=== PATIENT | male | born 1935 | race Caucasian/White ===

== ENCOUNTER 2017-08-22 16:38 | Inpatient (IN) | payer OTHER, MEDICARE ==
[~2017-08-22] VITALS: Ht 177.8 cm; Wt 100.0 kg
[~2017-08-22 16:38] MED LIST: ACET-2319 PO; ASPI-1140 PO; CLOP75TA35 PO; DIPH25CA83 PO; LISI-644 PO; OMEP20CA10 PO; SIMV40TA4 PO
[2017-08-22] MEDS ORDERED: aspirin 81mg tab.chew PO ONE (16:55)
[2017-08-22 17:21] LABS: BASOPHILS % (AUTO) 0.4 % (0-1); EOSINOPHILS # (AUTO) 0.2 X10'3 (0-0.9); HEMATOCRIT 44.3 % (42.0-52.0); HEMOGLOBIN 14.8 g/dl (14.0-17.9); LYMPHOCYTES # (AUTO) 1.3 X10'3 (1.1-4.8); LYMPHOCYTES % (AUTO) 12.6 % (21-51); MEAN CORPUSCULAR HGB CONC 33.3 % (33.0-36.5); MEAN CORPUSCULAR VOLUME 96.1 FL (78-98); MEAN PLATELET VOLUME 8.7 FL (7.4-10.4); MONOCYTES # (AUTO) 0.6 X10'3 (0-0.9); MONOCYTES % (AUTO) 6.3 % (2-12); NEUTROPHILS # (AUTO) 7.9 X10'3 (1.8-7.7); NEUTROPHILS % (AUTO) 78.7 % (42-75); PLATELET COUNT 143 X10'3 (140-440); RED BLOOD COUNT 4.61 X10'6 (4.70-6.10); RED CELL DISTRIBUTION WIDTH 13.8 % (11.5-14.5)
[2017-08-22 17:35] LABS: ALANINE AMINOTRANSFERASE 37 U/L (12-78); ALBUMIN/GLOBULIN RATIO 1.1 (1.1-1.5); ALKALINE PHOSPHATASE 90 IU/L (46-116); ANION GAP 9 (8-16); ASPARTATE AMINO TRANSFERASE 29 U/L (10-37); BILIRUBIN,TOTAL 0.4 MG/DL (0.1-1.0); BLOOD UREA NITROGEN 20 MG/DL (7-18); BUN/CREATININE RATIO 17.2 (5.4-32.0); CALCIUM 9.3 MG/DL (8.5-10.1); CHLORIDE 105 MMOL/L (99-107); CREATININE 1.16 MG/DL (0.60-1.10); GLUCOSE 144 MG/DL (70-104); POTASSIUM 4.5 MMOL/L (3.5-5.1); SODIUM 144 MMOL/L (135-145); TOTAL CARBON DIOXIDE 29.9 MMOL/L (24-32); TOTAL PROTEIN 7.6 G/DL (6.4-8.2); eGFR 60 ML/MIN
[2017-08-22 17:38] LABS: PARTIAL THROMBOPLASTIN TIME 21 SECONDS (22-32)
[2017-08-22] MEDS ORDERED: LIDOcaine Viscous 15ml cup PO ONE (18:05)
[2017-08-22] MEDS ORDERED: mag hydrox/Alum hydrox/simeth 30ml oral suspension PO ONE (18:05)
[2017-08-22] MEDS ORDERED: ondansetron/PF 4mg/2ml inj IV ONE (18:05)
[2017-08-22] MEDS ORDERED: morphine 5 MG/ML injection IV ONE (18:40)
[2017-08-22] MEDS ORDERED: morphine sulfate 8 MG/ML SYRINGE IV ONE (18:45)
[2017-08-22] MEDS ORDERED: iohexol 350MG/ML 100ml bottle IV ONE (18:46)
[2017-08-22] MEDS ORDERED: normal saline 1000ml 1,000 ML IV ONE (19:20)
[2017-08-22 20:27] LABS: LIPASE 103 U/L (73-393)
[2017-08-22] MEDS ORDERED: piperacillin/tazo 3.375gm/50ml 50 ML IV ONE (20:35)
[2017-08-22] MEDS ORDERED: LORazepam 2 mg/ml vial IV ONE (20:55)
[2017-08-22] MEDS ORDERED: temazepam 15mg capsule PO PRN (21:00)
[2017-08-22] MEDS ORDERED: pantoprazole 40 MG vial IV ONE (21:10)
[2017-08-22] MEDS ORDERED: morphine sulfate 8 MG/ML SYRINGE IV PRN ×2 (22:15)
[2017-08-22] MEDS ORDERED: acetaminophen 325mg tablet PO PRN (22:15)
[2017-08-22] MEDS ORDERED: lisinopril 20mg tablet PO SCH (22:15)
[2017-08-22] MEDS ORDERED: HYDROcodone/acetaminophen 5mg/325mg tablet PO PRN (22:15)
[2017-08-22] MEDS ORDERED: magnesium hydroxide 30ml (MOM) UD suspension PO PRN (22:15)
[2017-08-22] MEDS ORDERED: mag hydrox/Alum hydrox/simeth 30ml oral suspension PO PRN (22:15)
[2017-08-22] MEDS ORDERED: HYDROcodone/acetaminophen 10/325mg tab PO PRN (22:15)
[2017-08-22] MEDS ORDERED: bisacodyl 10mg suppository rectal RC PRN (22:15)
[2017-08-22] MEDS ORDERED: HYDROmorphone 1 mg/ml syringe IV PRN ×2 (22:15)
[2017-08-22] MEDS ORDERED: diphenhydrAMINE 25mg capsule PO PRN (22:15)
[2017-08-22] MEDS ORDERED: diphenhydrAMINE 50 mg/ml inj IV PRN (22:15)
[2017-08-22] MEDS ORDERED: acetaminophen 650mg rectal suppository RC PRN (22:15)
[2017-08-22] MEDS ORDERED: metoclopramide 5 mg/ml inj IV PRN (22:15)
[2017-08-22] MEDS ORDERED: lisinopril 10 MG tablet PO SCH (22:27)
[2017-08-22] MEDS: normal saline 1000ml 1,000 ML IV SCH (23:15)
[2017-08-22 23:25] LABS: HEMOGLOBIN A1C 5.3 % (4.5-6.2)
[2017-08-22 23:37] LABS: MAGNESIUM 1.9 MG/DL (1.5-2.4)
[2017-08-23] VITALS: BP 129/85
[2017-08-23] MEDS: normal saline 1000ml 1,000 ML IV SCH ×3 (00:48→18:54)
[2017-08-23 05:11] LABS: CLARITY,URINE CLEAR (Clear); COLOR,URINE YELLOW (Yellow); GLUCOSE, URINE NEGATIVE (Neg); KETONES,URINE 15 mg/dl (Neg); LEUKOCYTE ESTERASE ,URINE NEGATIVE (Neg); NITRITES, URINE NEGATIVE (Neg); OCCULT BLOOD,URINE NEGATIVE (Neg); PH,URINE 7.5 (4.8-8.0); PROTEIN,URINE TRACE mg/dl (Neg)
[2017-08-23 05:16] LABS: UA COLLECTION TYPE CLN CATCH MIDSTREAM
[2017-08-23 05:17] LABS: BASOPHILS % (AUTO) 0.1 % (0-1); EOSINOPHILS % (AUTO) 0 % (0-6); HEMATOCRIT 43.9 % (42.0-52.0); HEMOGLOBIN 14.6 g/dl (14.0-17.9); LYMPHOCYTES # (AUTO) 0.5 X10'3 (1.1-4.8); LYMPHOCYTES % (AUTO) 3.5 % (21-51); MEAN CORPUSCULAR HEMOGLOBIN 31.9 PG (27.0-31.0); MEAN CORPUSCULAR HGB CONC 33.3 % (33.0-36.5); MEAN CORPUSCULAR VOLUME 95.9 FL (78-98); MONOCYTES # (AUTO) 1.2 X10'3 (0-0.9); MONOCYTES % (AUTO) 8.7 % (2-12); NEUTROPHILS # (AUTO) 11.6 X10'3 (1.8-7.7); NEUTROPHILS % (AUTO) 87.7 % (42-75); PLATELET COUNT 130 X10'3 (140-440); RED BLOOD COUNT 4.57 X10'6 (4.70-6.10); WHITE BLOOD COUNT 13.3 X10'3 (4.5-11.0)
[2017-08-23 05:17] LABS: BACTERIA,URINE FEW /HPF (Neg); RBC,URINE 0-2 /HPF (0-2); SQUAMOUS EPITHELIAL CELL,UR FEW /LPF (FEW); WBC,URINE 0-4 /HPF (0-4)
[2017-08-23 05:54] LABS: ALANINE AMINOTRANSFERASE 34 U/L (12-78); ALBUMIN 3.6 G/DL (3.4-5.0); ALKALINE PHOSPHATASE 79 IU/L (46-116); ANION GAP 11 (8-16); ASPARTATE AMINO TRANSFERASE 24 U/L (10-37); BILIRUBIN,TOTAL 1.1 MG/DL (0.1-1.0); BLOOD UREA NITROGEN 17 MG/DL (7-18); BUN/CREATININE RATIO 14.8 (5.4-32.0); CALCIUM 8.7 MG/DL (8.5-10.1); CHLORIDE 105 MMOL/L (99-107); CREATININE 1.15 MG/DL (0.60-1.10); GLUCOSE 144 MG/DL (70-104); POTASSIUM 4.6 MMOL/L (3.5-5.1); SODIUM 142 MMOL/L (135-145); TOTAL CARBON DIOXIDE 26.4 MMOL/L (24-32); TOTAL PROTEIN 7.2 G/DL (6.4-8.2); eGFR 61 ML/MIN
[2017-08-23 07:00] VITALS: BP 123/71
[2017-08-23] MEDS ORDERED: docusate sod 100mg capsule PO ONE (07:26)
[2017-08-23] MEDS ORDERED: lisinopril 10 MG tablet ONE (07:27)
[2017-08-23] MEDS ORDERED: pantoprazole 40 MG vial IV ONE (07:27)
[2017-08-23] MEDS ORDERED: acetaminophen 325mg tablet ONE (07:28)
[2017-08-23] MEDS ORDERED: vancomycin/NS 1 GM ADD-VANTAGE 250 ML IV ONE (07:30)
[2017-08-23] MEDS: pantoprazole 40 MG vial IV SCH (07:40)
[2017-08-23] MEDS: acetaminophen 325mg tablet PO PRN (07:41)
[2017-08-23] MEDS ORDERED: vancomycin/NS 1 GM ADD-VANTAGE 250 ML IV SCH (08:00)
[2017-08-23] MEDS ORDERED: docusate sod 100mg capsule PO SCH (08:00)
[2017-08-23] MEDS: piperacillin/tazo 4.5gm/100ml 100 ML IV SCH ×2 (10:24→20:53)
[2017-08-23 11:41] VITALS: BP 132/80
[2017-08-23] MEDS ORDERED: morphine 5 MG/ML injection IV ONE (12:10)
[2017-08-23] MEDS ORDERED: morphine 5 MG/ML injection IV PRN (12:10)
[2017-08-23] MEDS ORDERED: insulin Lispro (HumaLOG) vial - multi-dose SQ SCH (13:00)
[2017-08-23] MEDS ORDERED: dextrose 50%-water 50ml dispensing syringe IV PRN ×2 (13:00)
[2017-08-23] MEDS ORDERED: MESSAGE TO PHARMACY PO ONE (13:00)
[2017-08-23] MEDS ORDERED: glucagon, human recombinant 1mg kit SUBCUT PRN (13:00)
[2017-08-23] MEDS ORDERED: dextrose ORAL solution 15 GM/59 ML bottle PO PRN ×2 (13:00)
[2017-08-23] MEDS ORDERED: hydrALAZINE 20mg/ml inj. IV ONE (13:43)
[2017-08-23 13:45] VITALS: BP 135/74
[2017-08-23] MEDS: hydrALAZINE 20mg/ml inj. IV SCH ×2 (13:49→20:52)
[2017-08-23] MEDS ORDERED: BARIUM SULFATE 340 ML SUSP.RECON***PROCEDURE AREA ONLY**DONT ENTER PO ONE (14:44)
[2017-08-23 20:00] VITALS: BP 148/87
[2017-08-23] MEDS: morphine sulfate 8 MG/ML SYRINGE IV PRN (21:25)
[2017-08-24] VITALS (10 sets, daily range): BP systolic 137–188; BP diastolic 75–95
[2017-08-24] MEDS: hydrALAZINE 20mg/ml inj. IV SCH ×4 (02:29→21:20)
[2017-08-24] MEDS: acetaminophen 325mg tablet PO PRN (02:43)
[2017-08-24 05:04] LABS: BASOPHILS % (AUTO) 0.1 % (0-1); EOSINOPHILS % (AUTO) 0 % (0-6); HEMATOCRIT 39.7 % (42.0-52.0); HEMOGLOBIN 13.5 g/dl (14.0-17.9); LYMPHOCYTES # (AUTO) 0.8 X10'3 (1.1-4.8); LYMPHOCYTES % (AUTO) 5.8 % (21-51); MEAN CORPUSCULAR HEMOGLOBIN 32.5 PG (27.0-31.0); MEAN CORPUSCULAR VOLUME 95.6 FL (78-98); MEAN PLATELET VOLUME 8.6 FL (7.4-10.4); MONOCYTES # (AUTO) 1.4 X10'3 (0-0.9); MONOCYTES % (AUTO) 10.2 % (2-12); NEUTROPHILS # (AUTO) 11.6 X10'3 (1.8-7.7); NEUTROPHILS % (AUTO) 83.9 % (42-75); PLATELET COUNT 124 X10'3 (140-440); RED BLOOD COUNT 4.15 X10'6 (4.70-6.10); RED CELL DISTRIBUTION WIDTH 13.8 % (11.5-14.5); WHITE BLOOD COUNT 13.8 X10'3 (4.5-11.0)
[2017-08-24 05:31] LABS: ALANINE AMINOTRANSFERASE 32 U/L (12-78); ALBUMIN 3.3 G/DL (3.4-5.0); ALBUMIN/GLOBULIN RATIO 0.9 (1.1-1.5); ALKALINE PHOSPHATASE 64 IU/L (46-116); ANION GAP 9 (8-16); ASPARTATE AMINO TRANSFERASE 25 U/L (10-37); BILIRUBIN,TOTAL 1.8 MG/DL (0.1-1.0); BLOOD UREA NITROGEN 12 MG/DL (7-18); BUN/CREATININE RATIO 12.6 (5.4-32.0); CALCIUM 8.6 MG/DL (8.5-10.1); CHLORIDE 103 MMOL/L (99-107); CREATININE 0.95 MG/DL (0.60-1.10); GLUCOSE 112 MG/DL (70-104); SODIUM 138 MMOL/L (135-145); TOTAL CARBON DIOXIDE 25.8 MMOL/L (24-32); TOTAL PROTEIN 6.8 G/DL (6.4-8.2); eGFR 76 ML/MIN
[2017-08-24] MEDS: pantoprazole 40 MG vial IV SCH (06:57)
[2017-08-24] MEDS: normal saline 1000ml 1,000 ML IV SCH ×2 (06:58→18:15)
[2017-08-24] MEDS: morphine sulfate 8 MG/ML SYRINGE IV PRN ×2 (07:07→14:36)
[2017-08-24] MEDS: piperacillin/tazo 4.5gm/100ml 100 ML IV SCH ×2 (07:15→21:20)
[2017-08-24] MEDS ORDERED: pantoprazole 40 MG vial IV SCH (08:00)
[2017-08-24] MEDS ORDERED: MIDAZolam 5mg/5ml vial ONE (08:50)
[2017-08-24] MEDS ORDERED: LIDOcaine Viscous 15ml cup ONE (08:50)
[2017-08-24] MEDS ORDERED: fentaNYL/PF 50MCG/1 ML 2ML syringe ONE (08:50)
[2017-08-24 10:33] LABS: BILIRUBIN,DIRECT 0.4 MG/DL (0-0.3)
[2017-08-24] MEDS ORDERED: normal saline 1000ml 1,000 ML IV SCH (11:17)
[2017-08-24] MEDS ORDERED: simethicone 40mg/0.6ml oral drops 30ml MC ONE (11:20)
[2017-08-24] MEDS ORDERED: MIDAZolam 5mg/5ml vial IV PRN (11:20)
[2017-08-24] MEDS ORDERED: LIDOcaine Viscous 15ml cup PO ONE (11:20)
[2017-08-24] MEDS ORDERED: fentaNYL/PF 50MCG/1 ML 2ML syringe IV PRN (11:20)
[2017-08-24 11:41] LABS: ABG BASE EXCESS -1.4 mmol/L (-2.0-3.0); ABG HCO3 22.4 mmol/L (22.0-26.0); ABG OXYGEN SATURATION 95.3 % (95-98); ABG PCO2 (T) 36.2 mmHg (35.0-48.0); ABG PH (T) 7.412 (7.350-7.450); ABG PO2 (T) 73.6 mmHg (83-108); ALLEN'S TEST Positive; FCOHb 0.8 % (0.5-1.5); FLOW 2 L/min; FMetHb 0.2 % (0.3-1.12); FO2Hb 94.3 % (94-100); PATIENT TEMPERATURE 37.6; TOTAL HEMOGLOBIN 14.3 G/dl (14.0-18.0)
[2017-08-24] MEDS: ondansetron/PF 4mg/2ml inj IV PRN (13:59)
[2017-08-24] MEDS ORDERED: nicotine 21mg patch - 24 hr TD SCH (16:40)
[2017-08-24] MEDS ORDERED: thiamine inj. 100 MG in normal saline 100ml IV soln 100 ML IV ONE (16:40)
[2017-08-24] MEDS ORDERED: LORazepam 2 mg/ml vial IV PRN ×4 (16:40)
[2017-08-24] MEDS ORDERED: haloperidol lactate 5mg/ml inj IM PRN ×3 (16:40)
[2017-08-24] MEDS ORDERED: haloperidol 5mg tablet PO PRN ×2 (16:40)
[2017-08-24] MEDS ORDERED: cloNIDine 0.1 mg tablet PO PRN ×2 (16:40→18:05)
[2017-08-24] MEDS ORDERED: LORazepam 1 MG tablet PO PRN (16:40)
[2017-08-24] MEDS ORDERED: loperamide 2mg capsule PO ONE (16:40)
[2017-08-24] MEDS ORDERED: cloNIDine 0.1 MG/24 HOUR patch (7 day patch) TD SCH (16:40)
[2017-08-24] MEDS ORDERED: dicyclomine 10 MG capsule PO PRN (16:40)
[2017-08-24] MEDS ORDERED: loperamide 2mg capsule PO PRN (16:40)
[2017-08-24] MEDS ORDERED: dextrose 50%-water 50ml dispensing syringe IV PRN (16:40)
[2017-08-24] MEDS ORDERED: mag hydrox/Alum hydrox/simeth 30ml oral suspension PO PRN (16:40)
[2017-08-24] MEDS: LORazepam 2 mg/ml vial IV PRN (22:57)
[2017-08-25] VITALS (21 sets, daily range): BP systolic 108–153; BP diastolic 54–92
[2017-08-25] MEDS: morphine sulfate 8 MG/ML SYRINGE IV PRN ×2 (00:08→15:59)
[2017-08-25] MEDS: LORazepam 2 mg/ml vial IV PRN (01:37)
[2017-08-25] MEDS: normal saline 1000ml 1,000 ML IV SCH ×3 (01:59→23:44)
[2017-08-25] MEDS: hydrALAZINE 20mg/ml inj. IV SCH ×4 (02:10→20:09)
[2017-08-25] MEDS ORDERED: heparin 10,000 units/1 ML INJ IV ONE (02:15)
[2017-08-25] MEDS ORDERED: heparin 10,000 units/1 ML INJ IV PRN (02:15)
[2017-08-25] MEDS ORDERED: diltiazem 5mg/ml 5ml inj. IV ONE ×2 (02:25→02:30)
[2017-08-25 02:38] LABS: BASOPHILS % (AUTO) 0.1 % (0-1); EOSINOPHILS % (AUTO) 0 % (0-6); HEMATOCRIT 39.3 % (42.0-52.0); HEMOGLOBIN 13.3 g/dl (14.0-17.9); LYMPHOCYTES # (AUTO) 0.7 X10'3 (1.1-4.8); LYMPHOCYTES % (AUTO) 4.9 % (21-51); MEAN CORPUSCULAR HEMOGLOBIN 32.5 PG (27.0-31.0); MEAN CORPUSCULAR HGB CONC 33.8 % (33.0-36.5); MEAN CORPUSCULAR VOLUME 96.3 FL (78-98); MEAN PLATELET VOLUME 8.7 FL (7.4-10.4); MONOCYTES # (AUTO) 1.5 X10'3 (0-0.9); MONOCYTES % (AUTO) 9.8 % (2-12); NEUTROPHILS # (AUTO) 12.7 X10'3 (1.8-7.7); NEUTROPHILS % (AUTO) 85.2 % (42-75); PLATELET COUNT 119 X10'3 (140-440); RED BLOOD COUNT 4.08 X10'6 (4.70-6.10); RED CELL DISTRIBUTION WIDTH 14.1 % (11.5-14.5); WHITE BLOOD COUNT 14.9 X10'3 (4.5-11.0)
[2017-08-25 02:47] LABS: PROTHROMBIN TIME 10.7 SECONDS (9.0-12.0)
[2017-08-25 02:57] LABS: ALANINE AMINOTRANSFERASE 25 U/L (12-78); ALBUMIN 2.9 G/DL (3.4-5.0); ALBUMIN/GLOBULIN RATIO 0.8 (1.1-1.5); ALKALINE PHOSPHATASE 69 IU/L (46-116); AMYLASE 20 U/L (25-115); ANION GAP 10 (8-16); ASPARTATE AMINO TRANSFERASE 25 U/L (10-37); BILIRUBIN,DIRECT 0.4 MG/DL (0-0.3); BILIRUBIN,TOTAL 1.9 MG/DL (0.1-1.0); BLOOD UREA NITROGEN 12 MG/DL (7-18); CALCIUM 8.2 MG/DL (8.5-10.1); CHLORIDE 103 MMOL/L (99-107); GLUCOSE 97 MG/DL (70-104); LIPASE 52 U/L (73-393); MAGNESIUM 1.6 MG/DL (1.5-2.4); PHOSPHORUS 1.9 MG/DL (2.3-4.5); POTASSIUM 3.6 MMOL/L (3.5-5.1); SODIUM 137 MMOL/L (135-145); TOTAL CARBON DIOXIDE 23.8 MMOL/L (24-32); TOTAL PROTEIN 6.7 G/DL (6.4-8.2); eGFR 72 ML/MIN
[2017-08-25 03:26] LABS: PARTIAL THROMBOPLASTIN TIME 34 SECONDS (22-32)
[2017-08-25] MEDS ORDERED: diltiazem-D5W 125mg/125ml 125 ML IV SCH (04:20)
[2017-08-25] MEDS ORDERED: metoprolol tartrate 1mg/ml inj IV ONE (07:35)
[2017-08-25] MEDS ORDERED: methylPREDNISolone sod succ 125mg/2ml vial IV ONE (07:35)
[2017-08-25] MEDS ORDERED: digoxin 250mcg/ml 2ml ampule IV ONE (07:35)
[2017-08-25] MEDS ORDERED: folic acid 1mg tablet PO SCH (08:00)
[2017-08-25] MEDS ORDERED: folic acid inj. 2 MG, thiamine inj. 100 MG, MVI, adult No.4 with vit. K 10 ML in dextro... IV SCH ×4 (08:00)
[2017-08-25] MEDS ORDERED: atenolol 50mg tablet PO SCH (08:00)
[2017-08-25] MEDS ORDERED: multivitamins, therapeutics tablet PO SCH (08:00)
[2017-08-25] MEDS ORDERED: enoxaparin 40mg/0.4ml syringe SQ SCH (08:00)
[2017-08-25] MEDS ORDERED: thiamine 100mg tablet PO SCH (08:00)
[2017-08-25] MEDS ORDERED: nicotine 14mg patch - 24hr TD SCH (08:00)
[2017-08-25] MEDS ORDERED: amiodarone 150mg/dext, iso-os 100 ML IV ONE (08:05)
[2017-08-25] MEDS: pantoprazole 40 MG vial IV SCH (08:17)
[2017-08-25] MEDS: amiodarone/D5 360MG/200ML BAG 200 ML IV SCH ×4 (08:40→23:35)
[2017-08-25] MEDS ORDERED: magnesium 2GM in 50ml NS 50 ML IV ONE (09:10)
[2017-08-25] MEDS: piperacillin/tazo 4.5gm/100ml 100 ML IV SCH ×2 (13:00→20:09)
[2017-08-25] MEDS: ondansetron/PF 4mg/2ml inj IV PRN (16:15)
[2017-08-25] MEDS ORDERED: albuterol 2.5 MG/3 ML nebule NEB PRN (20:45)
[2017-08-26] VITALS (8 sets, daily range): BP systolic 119–142; BP diastolic 53–75
[2017-08-26] MEDS: hydrALAZINE 20mg/ml inj. IV SCH ×4 (01:39→20:01)
[2017-08-26 05:38] LABS: BASOPHILS % (AUTO) 0 % (0-1); EOSINOPHILS % (AUTO) 0 % (0-6); HEMATOCRIT 38.7 % (42.0-52.0); HEMOGLOBIN 12.8 g/dl (14.0-17.9); LYMPHOCYTES # (AUTO) 0.5 X10'3 (1.1-4.8); MEAN CORPUSCULAR HEMOGLOBIN 32.1 PG (27.0-31.0); MEAN CORPUSCULAR HGB CONC 33.2 % (33.0-36.5); MEAN CORPUSCULAR VOLUME 96.9 FL (78-98); MEAN PLATELET VOLUME 8.9 FL (7.4-10.4); MONOCYTES # (AUTO) 1.1 X10'3 (0-0.9); MONOCYTES % (AUTO) 9.2 % (2-12); NEUTROPHILS # (AUTO) 10.9 X10'3 (1.8-7.7); NEUTROPHILS % (AUTO) 86.8 % (42-75); PLATELET COUNT 142 X10'3 (140-440); RED BLOOD COUNT 3.99 X10'6 (4.70-6.10); RED CELL DISTRIBUTION WIDTH 13.9 % (11.5-14.5); WHITE BLOOD COUNT 12.5 X10'3 (4.5-11.0)
[2017-08-26 06:03] LABS: ALANINE AMINOTRANSFERASE 48 U/L (12-78); ALBUMIN 2.6 G/DL (3.4-5.0); ALBUMIN/GLOBULIN RATIO 0.6 (1.1-1.5); ALKALINE PHOSPHATASE 71 IU/L (46-116); AMYLASE 24 U/L (25-115); ANION GAP 8 (8-16); ASPARTATE AMINO TRANSFERASE 45 U/L (10-37); BILIRUBIN,TOTAL 0.7 MG/DL (0.1-1.0); BLOOD UREA NITROGEN 17 MG/DL (7-18); BUN/CREATININE RATIO 15.9 (5.4-32.0); CALCIUM 8.5 MG/DL (8.5-10.1); CHLORIDE 103 MMOL/L (99-107); CREATININE 1.07 MG/DL (0.60-1.10); GLUCOSE 124 MG/DL (70-104); LIPASE 72 U/L (73-393); MAGNESIUM 2.3 MG/DL (1.5-2.4); PHOSPHORUS 2.2 MG/DL (2.3-4.5); POTASSIUM 3.8 MMOL/L (3.5-5.1); SODIUM 136 MMOL/L (135-145); TOTAL CARBON DIOXIDE 25.5 MMOL/L (24-32); TOTAL PROTEIN 6.8 G/DL (6.4-8.2); eGFR 66 ML/MIN
[2017-08-26] MEDS ORDERED: ipratropium 0.5 MG/2.5ML nebule IH PRN (07:25)
[2017-08-26 07:43] LABS: BILIRUBIN,DIRECT 0.2 MG/DL (0-0.3)
[2017-08-26] MEDS: pantoprazole 40 MG vial IV SCH (08:06)
[2017-08-26] MEDS: furosemide 20 MG/2 ML vial IV SCH ×2 (08:06→20:01)
[2017-08-26] MEDS: enoxaparin 100mg/ml syringe SUBCUT SCH ×2 (08:07→20:02)
[2017-08-26] MEDS: amiodarone 200mg tablet PO SCH ×2 (08:07→20:01)
[2017-08-26] MEDS: piperacillin/tazo 4.5gm/100ml 100 ML IV SCH ×2 (08:46→20:02)
[2017-08-26] MEDS ORDERED: LORazepam 2 mg/ml vial IV PRN (16:40)
[2017-08-26] MEDS ORDERED: LORazepam 1 MG tablet PO PRN (16:40)
[2017-08-26] MEDS: lactobacillus rhamnosus 10,000 MMU CELLS/CAPSULE PO SCH (16:53)
[2017-08-26] MEDS: cyclobenzaprine 10mg tablet PO PRN (20:13)
[2017-08-27] MEDS: hydrALAZINE 20mg/ml inj. IV SCH ×4 (01:33→20:59)
[2017-08-27 03:00] VITALS: BP 125/66
[2017-08-27 05:05] LABS: BASOPHILS % (AUTO) 0.1 % (0-1); EOSINOPHILS # (AUTO) 0.1 X10'3 (0-0.9); EOSINOPHILS % (AUTO) 0.9 % (0-6); HEMATOCRIT 39.4 % (42.0-52.0); HEMOGLOBIN 13.1 g/dl (14.0-17.9); LYMPHOCYTES # (AUTO) 1.1 X10'3 (1.1-4.8); LYMPHOCYTES % (AUTO) 14.3 % (21-51); MEAN CORPUSCULAR HEMOGLOBIN 31.8 PG (27.0-31.0); MEAN CORPUSCULAR HGB CONC 33.1 % (33.0-36.5); MEAN CORPUSCULAR VOLUME 95.9 FL (78-98); MEAN PLATELET VOLUME 8.5 FL (7.4-10.4); MONOCYTES % (AUTO) 14.1 % (2-12); NEUTROPHILS # (AUTO) 5.2 X10'3 (1.8-7.7); NEUTROPHILS % (AUTO) 70.6 % (42-75); PLATELET COUNT 174 X10'3 (140-440); RED BLOOD COUNT 4.11 X10'6 (4.70-6.10); RED CELL DISTRIBUTION WIDTH 14.4 % (11.5-14.5); WHITE BLOOD COUNT 7.4 X10'3 (4.5-11.0)
[2017-08-27 05:36] LABS: ALANINE AMINOTRANSFERASE 56 U/L (12-78); ALBUMIN 2.5 G/DL (3.4-5.0); ALBUMIN/GLOBULIN RATIO 0.6 (1.1-1.5); ALKALINE PHOSPHATASE 76 IU/L (46-116); AMYLASE 65 U/L (25-115); ANION GAP 6 (8-16); ASPARTATE AMINO TRANSFERASE 41 U/L (10-37); BILIRUBIN,TOTAL 0.9 MG/DL (0.1-1.0); BLOOD UREA NITROGEN 20 MG/DL (7-18); BUN/CREATININE RATIO 17.9 (5.4-32.0); CALCIUM 8.6 MG/DL (8.5-10.1); CHLORIDE 105 MMOL/L (99-107); CREATININE 1.12 MG/DL (0.60-1.10); GLUCOSE 87 MG/DL (70-104); LIPASE 357 U/L (73-393); MAGNESIUM 2.1 MG/DL (1.5-2.4); POTASSIUM 3.1 MMOL/L (3.5-5.1); SODIUM 140 MMOL/L (135-145); TOTAL CARBON DIOXIDE 29.3 MMOL/L (24-32); TOTAL PROTEIN 6.4 G/DL (6.4-8.2); eGFR 63 ML/MIN
[2017-08-27 06:00] VITALS: BP 140/79
[2017-08-27] MEDS: piperacillin/tazo 4.5gm/100ml 100 ML IV SCH ×2 (08:45→20:59)
[2017-08-27] MEDS: pantoprazole 40mg Tablet.DR PO SCH (08:47)
[2017-08-27] MEDS: lactobacillus rhamnosus 10,000 MMU CELLS/CAPSULE PO SCH ×2 (08:47→17:31)
[2017-08-27] MEDS: amiodarone 200mg tablet PO SCH ×2 (08:47→21:00)
[2017-08-27] MEDS: furosemide 20 MG/2 ML vial IV SCH ×2 (08:47→20:59)
[2017-08-27] MEDS: enoxaparin 100mg/ml syringe SUBCUT SCH ×2 (08:48→20:59)
[2017-08-27 11:00] VITALS: BP 110/58
[2017-08-27] MEDS ORDERED: potassium Cl 20 mEq SR tablet PO PRN (11:30)
[2017-08-27] MEDS ORDERED: potassium Cl 40MEQ/NS 500ml 500 ML IV PRN ×2 (11:30)
[2017-08-27] MEDS: potassium Cl 20 mEq SR tablet PO PRN ×2 (12:15→21:00)
[2017-08-27] MEDS: benzonatate 100mg capsule PO PRN ×2 (12:15→21:00)
[2017-08-27 15:00] VITALS: BP 140/71
[2017-08-27 19:00] VITALS: BP 131/63
[2017-08-27 23:00] VITALS: BP 143/63
[2017-08-27] MEDS: cyclobenzaprine 10mg tablet PO PRN (23:57)
[2017-08-28] MEDS: hydrALAZINE 20mg/ml inj. IV SCH ×4 (02:55→20:39)
[2017-08-28 03:00] VITALS: BP 142/81
[2017-08-28 06:06] LABS: BASOPHILS % (AUTO) 0.6 % (0-1); EOSINOPHILS # (AUTO) 0.2 X10'3 (0-0.9); EOSINOPHILS % (AUTO) 3.4 % (0-6); HEMOGLOBIN 13.6 g/dl (14.0-17.9); LYMPHOCYTES # (AUTO) 1.3 X10'3 (1.1-4.8); LYMPHOCYTES % (AUTO) 21.4 % (21-51); MEAN CORPUSCULAR HGB CONC 33.2 % (33.0-36.5); MEAN CORPUSCULAR VOLUME 96.4 FL (78-98); MEAN PLATELET VOLUME 8.1 FL (7.4-10.4); MONOCYTES % (AUTO) 16.6 % (2-12); NEUTROPHILS # (AUTO) 3.5 X10'3 (1.8-7.7); PLATELET COUNT 173 X10'3 (140-440); RED BLOOD COUNT 4.25 X10'6 (4.70-6.10); RED CELL DISTRIBUTION WIDTH 14.2 % (11.5-14.5)
[2017-08-28 06:19] LABS: AMYLASE 61 U/L (25-115); LIPASE 364 U/L (73-393); MAGNESIUM 1.9 MG/DL (1.5-2.4); PHOSPHORUS 2.8 MG/DL (2.3-4.5)
[2017-08-28 06:30] VITALS: BP 143/70
[2017-08-28 07:14] LABS: ALANINE AMINOTRANSFERASE 57 U/L (12-78); ALBUMIN 2.6 G/DL (3.4-5.0); ALBUMIN/GLOBULIN RATIO 0.7 (1.1-1.5); ALKALINE PHOSPHATASE 69 IU/L (46-116); ANION GAP 11 (8-16); ASPARTATE AMINO TRANSFERASE 34 U/L (10-37); BLOOD UREA NITROGEN 21 MG/DL (7-18); BUN/CREATININE RATIO 18.8 (5.4-32.0); CALCIUM 8.8 MG/DL (8.5-10.1); CHLORIDE 104 MMOL/L (99-107); CREATININE 1.12 MG/DL (0.60-1.10); GLUCOSE 91 MG/DL (70-104); POTASSIUM 3.2 MMOL/L (3.5-5.1); SODIUM 142 MMOL/L (135-145); TOTAL CARBON DIOXIDE 27.4 MMOL/L (24-32); TOTAL PROTEIN 6.6 G/DL (6.4-8.2); eGFR 63 ML/MIN
[2017-08-28] MEDS: pantoprazole 40mg Tablet.DR PO SCH (07:15)
[2017-08-28] MEDS: lactobacillus rhamnosus 10,000 MMU CELLS/CAPSULE PO SCH ×2 (07:15→16:37)
[2017-08-28] MEDS: furosemide 20 MG/2 ML vial IV SCH ×2 (07:15→20:39)
[2017-08-28] MEDS: enoxaparin 100mg/ml syringe SUBCUT SCH (07:15)
[2017-08-28] MEDS: amiodarone 200mg tablet PO SCH ×2 (07:15→20:40)
[2017-08-28] MEDS: piperacillin/tazo 4.5gm/100ml 100 ML IV SCH ×2 (07:16→20:39)
[2017-08-28] MEDS: potassium Cl 20 mEq SR tablet PO PRN ×3 (08:17→17:02)
[2017-08-28] MEDS ORDERED: guaiFENesin/DM 10ml UD oral syrup PO PRN (11:40)
[2017-08-28] MEDS: guaiFENesin/DM oral syrup 5 ML CUP PO PRN ×3 (12:14→20:42)
[2017-08-28 12:32] VITALS: BP 124/72
[2017-08-28 15:57] VITALS: BP 131/56
[2017-08-28] MEDS ORDERED: LORazepam 1 MG tablet PO PRN (16:40)
[2017-08-28] MEDS ORDERED: LORazepam 2 mg/ml vial IV PRN (16:40)
[2017-08-28 19:00] VITALS: BP 122/71
[2017-08-28] MEDS: apixaban 5mg tablet PO SCH (20:40)
[2017-08-28] MEDS: cyclobenzaprine 10mg tablet PO PRN (20:40)
[2017-08-28 23:00] VITALS: BP 134/75
[2017-08-29] MEDS: guaiFENesin/DM oral syrup 5 ML CUP PO PRN ×2 (00:57→08:02)
[2017-08-29 02:00] VITALS: BP 126/76
[2017-08-29] MEDS: hydrALAZINE 20mg/ml inj. IV SCH ×2 (02:30→08:02)
[2017-08-29 02:33] VITALS: BP 126/76
[2017-08-29 03:00] VITALS: BP 128/74
[2017-08-29] MEDS: cyclobenzaprine 10mg tablet PO PRN (03:24)
[2017-08-29 06:00] VITALS: BP 129/78
[2017-08-29 06:24] LABS: PROTHROMBIN TIME 10.4 SECONDS (9.0-12.0)
[2017-08-29 06:42] LABS: PHOSPHORUS 3.6 MG/DL (2.3-4.5)
[2017-08-29 07:09] LABS: BASOPHILS % (AUTO) 0.5 % (0-1); EOSINOPHILS # (AUTO) 0.4 X10'3 (0-0.9); EOSINOPHILS % (AUTO) 6.3 % (0-6); HEMATOCRIT 42.2 % (42.0-52.0); HEMOGLOBIN 14.4 g/dl (14.0-17.9); LYMPHOCYTES # (AUTO) 1.2 X10'3 (1.1-4.8); MEAN CORPUSCULAR HEMOGLOBIN 32.2 PG (27.0-31.0); MEAN CORPUSCULAR HGB CONC 34.2 % (33.0-36.5); MEAN CORPUSCULAR VOLUME 94.1 FL (78-98); MEAN PLATELET VOLUME 8.2 FL (7.4-10.4); MONOCYTES # (AUTO) 0.9 X10'3 (0-0.9); MONOCYTES % (AUTO) 14.8 % (2-12); NEUTROPHILS # (AUTO) 3.8 X10'3 (1.8-7.7); NEUTROPHILS % (AUTO) 59.4 % (42-75); PLATELET COUNT 209 X10'3 (140-440); RED BLOOD COUNT 4.49 X10'6 (4.70-6.10); RED CELL DISTRIBUTION WIDTH 13.3 % (11.5-14.5); WHITE BLOOD COUNT 6.3 X10'3 (4.5-11.0)
[2017-08-29] MEDS: piperacillin/tazo 4.5gm/100ml 100 ML IV SCH (08:01)
[2017-08-29] MEDS: apixaban 5mg tablet PO SCH (08:02)
[2017-08-29] MEDS: amiodarone 200mg tablet PO SCH (08:02)
[2017-08-29] MEDS: furosemide 20 MG/2 ML vial IV SCH (08:02)
[2017-08-29] MEDS: lactobacillus rhamnosus 10,000 MMU CELLS/CAPSULE PO SCH (08:02)
[2017-08-29] MEDS: pantoprazole 40mg Tablet.DR PO SCH (08:02)
[2017-08-29 11:00] VITALS: BP 117/64
== END 2017-08-29 13:45 | DRG 444 ==
LOC: ER 16:39 → ED HOLD 22:26 → SUR 3N 23:50 → PCU 3S 08-25 02:56
PROVIDERS: ADMIT Family Medicine; ATTEND Family Medicine
PROC: B32T1ZZ Computerized Tomography (CT Scan) of Left Pulmonary Artery using Low Osmolar Contrast (ICD-10-PCS; 2017-08-22)
PROC: B3201ZZ Computerized Tomography (CT Scan) of Thoracic Aorta using Low Osmolar Contrast (ICD-10-PCS; 2017-08-22)
PROC: B32S1ZZ Computerized Tomography (CT Scan) of Right Pulmonary Artery using Low Osmolar Contrast (ICD-10-PCS; 2017-08-22)
PROC: B4201ZZ Computerized Tomography (CT Scan) of Abdominal Aorta using Low Osmolar Contrast (ICD-10-PCS; 2017-08-22)
PROC: B4281ZZ Computerized Tomography (CT Scan) of Bilateral Renal Arteries using Low Osmolar Contrast (ICD-10-PCS; 2017-08-22)
PROC: BF2 Imaging, Hepatobiliary System and Pancreas, Computerized Tomography (CT Scan) (ICD-10-PCS; 2017-08-22)
PROC: 0DJ08ZZ Inspection of Upper Intestinal Tract, Via Natural or Artificial Opening Endoscopic (ICD-10-PCS; principal; 2017-08-24)
PROC: CF241ZZ Tomographic (Tomo) Nuclear Medicine Imaging of Gallbladder using Technetium 99m (Tc-99m) (ICD-10-PCS; 2017-08-24)
PROC: 0F9430Z Drainage of Gallbladder with Drainage Device, Percutaneous Approach (ICD-10-PCS; 2017-08-25)
DX: K80.00 Calculus of gallbladder with acute cholecystitis without obstruction (principal); N17.0 Acute kidney failure with tubular necrosis; I16.1 Hypertensive emergency; F10.239 Alcohol dependence with withdrawal, unspecified; E11.22 Type 2 diabetes mellitus with diabetic chronic kidney disease; E66.01 Morbid (severe) obesity due to excess calories; R93.3 Abnormal findings on diagnostic imaging of other parts of digestive tract; I48.91 Unspecified atrial fibrillation; K44.9 Diaphragmatic hernia without obstruction or gangrene; D64.9 Anemia, unspecified; E78.00 Pure hypercholesterolemia, unspecified; E78.5 Hyperlipidemia, unspecified; E83.39 Other disorders of phosphorus metabolism; E87.6 Hypokalemia; I12.9 Hypertensive chronic kidney disease with stage 1 through stage 4 chronic kidney disease, or unspecified chronic kidney disease; K21.9 Gastro-esophageal reflux disease without esophagitis; N18.9 Chronic kidney disease, unspecified; F17.210 Nicotine dependence, cigarettes, uncomplicated; Z68.31 Body mass index [BMI] 31.0-31.9, adult; Z88.8 Allergy status to other drugs, medicaments and biological substances; Z79.899 Other long term (current) drug therapy; Z71.41 Alcohol abuse counseling and surveillance of alcoholic; Z86.73 Personal history of transient ischemic attack (TIA), and cerebral infarction without residual deficits; Z82.41 Family history of sudden cardiac death; Z82.49 Family history of ischemic heart disease and other diseases of the circulatory system; Z83.3 Family history of diabetes mellitus
CPT/HCPCS: 36415; 36600; 47490; 70450; 71010; 71020; 71275; 72192; 74174; 74220; 76700; 78226; 80053; 80162; 81001; 82150; 82248; 82803; 82948; 83036; 83690; 83735; 83880; 84100; 84439; 84443; 84484; 85018; 85025; 85610; 85730; 87070; 93005; 93306; 94640; 94760; 96365; 96366; 96375; 97110; 97116; 97161; 97530; 99285; A4620; A6257; A6449; A9537; C9113; G0500; J0282; J0360; J1160; J1644; J1650; J1940; J2060; J2250; J2270; J2405; J2543; J2930; J3010; J3370; J3411; J3475; J3490; J7030; Q0163; Q9967

== ENCOUNTER 2017-10-16 07:16 | Day surgery (SDC) | payer OTHER ==
[~2017-10-16] VITALS: Ht 175.3 cm; Wt 97.4 kg
[2017-10-16] MEDS ORDERED: levoFLOXACIN-Levaquin 500mg/D5 100 ML IV ONE (07:37)
[2017-10-16] MEDS ORDERED: normal saline 1000ml 1,000 ML IV SCH (07:40)
[2017-10-16 07:50] VITALS: BP 149/80
[2017-10-16] MEDS ORDERED: AMIO200T27 PO (08:06)
[2017-10-16 08:12] LABS: BASOPHILS % (AUTO) 0.4 % (0-1); EOSINOPHILS # (AUTO) 0.2 X10'3 (0-0.9); EOSINOPHILS % (AUTO) 2.9 % (0-6); HEMATOCRIT 46.5 % (42.0-52.0); HEMOGLOBIN 16.1 g/dl (14.0-17.9); LYMPHOCYTES # (AUTO) 1.7 X10'3 (1.1-4.8); LYMPHOCYTES % (AUTO) 32.1 % (21-51); MEAN CORPUSCULAR HEMOGLOBIN 31.9 PG (27.0-31.0); MEAN CORPUSCULAR HGB CONC 34.5 % (33.0-36.5); MEAN CORPUSCULAR VOLUME 92.5 FL (78-98); MEAN PLATELET VOLUME 7.7 FL (7.4-10.4); MONOCYTES # (AUTO) 0.5 X10'3 (0-0.9); MONOCYTES % (AUTO) 9.3 % (2-12); NEUTROPHILS # (AUTO) 2.9 X10'3 (1.8-7.7); NEUTROPHILS % (AUTO) 55.3 % (42-75); PLATELET COUNT 188 X10'3 (140-440); RED BLOOD COUNT 5.03 X10'6 (4.70-6.10); RED CELL DISTRIBUTION WIDTH 13.8 % (11.5-14.5); WHITE BLOOD COUNT 5.3 X10'3 (4.5-11.0)
[2017-10-16] MEDS ORDERED: LIDOcaine 1%/PF (10mg/ml) 5ml vial ONE (08:50)
[2017-10-16] MEDS ORDERED: iohexol 300 MG/1 ML 50ml polymer ONE (08:50)
[2017-10-16] MEDS ORDERED: midazolam 2 mg/2 ml injection IV PRN (08:55)
[2017-10-16] MEDS ORDERED: LIDOcaine 1% (10mg/ml) 2ml vial SQ ONE (08:55)
[2017-10-16] MEDS ORDERED: fentaNYL/PF 50MCG/1 ML 2ML syringe IV PRN (08:55)
[2017-10-16 09:10] VITALS: BP 153/87
[2017-10-16 09:15] VITALS: BP 141/80
[2017-10-16 09:37] VITALS: BP 145/85
[2017-10-16 09:45] VITALS: BP 149/80
== END 2017-10-16 10:00 | disposition home or self-care (01) ==
LOC: SSTAY O 07:16
PROVIDERS: ATTEND Radiology Diagnostic Radiology
DX: T85.518A Breakdown (mechanical) of other gastrointestinal prosthetic devices, implants and grafts, initial encounter (principal); E11.9 Type 2 diabetes mellitus without complications; E78.00 Pure hypercholesterolemia, unspecified; I10 Essential (primary) hypertension; F17.210 Nicotine dependence, cigarettes, uncomplicated; Z86.73 Personal history of transient ischemic attack (TIA), and cerebral infarction without residual deficits; Z98.890 Other specified postprocedural states; Z88.8 Allergy status to other drugs, medicaments and biological substances; Z79.899 Other long term (current) drug therapy; Y83.8 Other surgical procedures as the cause of abnormal reaction of the patient, or of later complication, without mention of misadventure at the time of the procedure; Y92.89 Other specified places as the place of occurrence of the external cause
CPT/HCPCS: 36415; 47531; 85025; A6257; A6449; J1956; J7030; Q9967; J2001

== ENCOUNTER 2020-07-14 08:33 | Emergency (ER) | payer OTHER, MEDICARE ==
[~2020-07-14] VITALS: Ht 177.8 cm; Wt 93.2 kg
[~2020-07-14 08:33] MED LIST changes: -ACET-2319 PO; +AMIO200T27 PO; -ASPI-1140 PO; +FOLI1TAB16 PO; -OMEP20CA10 PO; +OMEP20CA15 PO; +SIMV-45 PO; -SIMV40TA4 PO; +THI100T PO
[2020-07-14] MEDS ORDERED: azithromycin/NS 500mg/250ml 250 ML IV ONE (09:30)
[2020-07-14] MEDS ORDERED: AZIT250T29 PO (09:32)
[2020-07-14] MEDS ORDERED: CEFD300C3 PO (09:32)
[2020-07-14] MEDS ORDERED: azithromycin 250mg tablet PO ONE (09:45)
[2020-07-14 09:57] VITALS: BP 156/90
== END 2020-07-14 09:59 | disposition home or self-care (01) ==
LOC: ER 08:33
DX: J18.9 Pneumonia, unspecified organism (principal); E78.00 Pure hypercholesterolemia, unspecified; I10 Essential (primary) hypertension; E11.9 Type 2 diabetes mellitus without complications; Z86.73 Personal history of transient ischemic attack (TIA), and cerebral infarction without residual deficits; Z88.8 Allergy status to other drugs, medicaments and biological substances; Z79.2 Long term (current) use of antibiotics; Z79.899 Other long term (current) drug therapy
CPT/HCPCS: 71045; 99283

== ENCOUNTER 2023-08-24 13:25 | Inpatient (IN) | payer OTHER, MEDICARE ==
[~2023-08-24] VITALS: Ht 177.8 cm; Wt 85.4 kg
[2023-08-24] VITALS (16 sets, daily range): BP systolic 96–150; BP diastolic 59–80; PULSE 75–114; RESP 24–50; TEMP 97.6–97.9; O2SAT 91–96
[~2023-08-24 13:25] MED LIST changes: +CLOP75TA34 PO; -CLOP75TA35 PO; -FOLI1TAB16 PO; +FOLI1TAB27 PO
[2023-08-24] MEDS ORDERED: ipratropium/albuterol 3ml nebule NEB ONE (13:50)
[2023-08-24 14:05] LABS: BASOPHILS # (AUTO) 0.1 X10'3 (0-0.2); BASOPHILS % (AUTO) 0.7 % (0-1); EOSINOPHILS # (AUTO) 0.4 X10'3 (0-0.9); EOSINOPHILS % (AUTO) 4.4 % (0-6); HEMATOCRIT 48.5 % (42.0-52.0); HEMOGLOBIN 16.5 g/dl (14.0-17.9); LYMPHOCYTES # (AUTO) 0.7 X10'3 (1.1-4.8); LYMPHOCYTES % (AUTO) 7.6 % (21-51); MEAN CORPUSCULAR HEMOGLOBIN 32.9 PG (27.0-31.0); MEAN PLATELET VOLUME 8.5 FL (7.4-10.4); MONOCYTES # (AUTO) 0.8 X10'3 (0-0.9); MONOCYTES % (AUTO) 8.7 % (2-12); NEUTROPHILS # (AUTO) 6.9 X10'3 (1.8-7.7); NEUTROPHILS % (AUTO) 78.6 % (42-75); PLATELET COUNT 156 X10'3 (140-440); RED CELL DISTRIBUTION WIDTH 13.7 % (11.5-14.5); WHITE BLOOD COUNT 8.8 X10'3 (4.5-11.0)
[2023-08-24] MEDS ORDERED: methylPREDNISolone sod succ 125mg/2ml vial IV ONE (14:05)
[2023-08-24] MEDS: albuterol 2.5 MG/3 ML nebule CONTNEB PRN ×2 (14:07→17:18)
[2023-08-24 14:12] LABS: D-DIMER 0.88 MG/L FEU (0-0.50)
[2023-08-24 14:17] LABS: ALANINE AMINOTRANSFERASE 16 U/L (12-78); ALBUMIN 4.1 G/DL (3.4-5.0); ALKALINE PHOSPHATASE 97 IU/L (46-116); ANION GAP 9 (8-16); ASPARTATE AMINO TRANSFERASE 19 U/L (10-37); BILIRUBIN,TOTAL 1.3 MG/DL (0.1-1.0); BLOOD UREA NITROGEN 16 MG/DL (7-18); BUN/CREATININE RATIO 14.7 (10.0-20.0); CALCIUM 8.9 MG/DL (8.5-10.1); CHLORIDE 103 MMOL/L (99-107); CREATININE 1.09 MG/DL (0.60-1.10); GLUCOSE 145 MG/DL (70-104); SODIUM 137 MMOL/L (135-145); TOTAL PROTEIN 8.3 G/DL (6.4-8.2); eCRCL 49 ML/MIN; eGFR 64 ML/MIN
[2023-08-24 14:24] LABS: C-REACTIVE PROTEIN 0.81 MG/DL (0.0-0.5); PRO BRAIN NATRIURETIC PEPTIDE 269 PG/ML (0-450)
[2023-08-24] MEDS ORDERED: magnesium 2GM in 50ml NS 50 ML IV ONE (14:30)
[2023-08-24] MEDS ORDERED: dextrose 50%-water 50ml dispensing syringe IV PRN ×2 (17:05)
[2023-08-24] MEDS ORDERED: potassium Cl 20 mEq SR tablet PO PRN ×2 (17:05)
[2023-08-24] MEDS ORDERED: normal saline 1000ml 1,000 ML IV SCH (17:05)
[2023-08-24] MEDS ORDERED: ondansetron/PF 4mg/2ml inj IV PRN (17:05)
[2023-08-24] MEDS ORDERED: magnesium 2GM in 50ml NS 50 ML IV PRN (17:05)
[2023-08-24] MEDS ORDERED: albuterol 2.5 MG/3 ML nebule NEB PRN (17:05)
[2023-08-24] MEDS ORDERED: haloperidol 5mg tablet PO PRN (17:05)
[2023-08-24] MEDS ORDERED: LORazepam 2 mg/ml vial IV PRN ×2 (17:05→18:05)
[2023-08-24] MEDS ORDERED: insulin Lispro (HumaLOG) vial - multi-dose SQ SCH (17:05)
[2023-08-24] MEDS ORDERED: DEXTROSE 15 GM of carb/4 tabs (each vial/BOTTLE has 4 tablets) PO PRN ×2 (17:05)
[2023-08-24] MEDS ORDERED: acetaminophen 325mg tablet PO PRN (17:05)
[2023-08-24] MEDS ORDERED: magnesium 4gm in 100ml NS 100 ML IV PRN (17:05)
[2023-08-24] MEDS ORDERED: mag hydrox/Alum hydrox/simeth 30ml oral suspension PO PRN (17:05)
[2023-08-24] MEDS ORDERED: potassium Cl 40MEQ/1/2NS 520ml 520 ML IV PRN (17:05)
[2023-08-24] MEDS ORDERED: haloperidol lactate 5mg/ml inj IM PRN (17:05)
[2023-08-24] MEDS ORDERED: MESSAGE TO PHARMACY PO ONE (17:05)
[2023-08-24] MEDS ORDERED: glucagon, human recombinant 1mg kit SUBCUT PRN (17:05)
[2023-08-24] MEDS ORDERED: hydrALAZINE 20mg/ml inj. IV ONE (17:10)
[2023-08-24] MEDS ORDERED: iohexol 350MG/ML 100ml bottle IV ONE (17:11)
[2023-08-24] MEDS ORDERED: LORazepam 2 mg/ml vial IV ONE (17:25)
[2023-08-24 18:13] LABS: ABG BASE EXCESS -4.8 mmol/L (-2.0-2.0); ABG OXYGEN SATURATION 98.7 % (94-97); ABG PCO2 (T) 45.5 mmHg (35.0-48.0); ABG PH (T) 7.299 (7.340-7.440); ABG PO2 (T) 143.9 mmHg (75.0-100.0); ALLEN'S TEST POSITIVE; FCOHb 0.1 % (0.0-3.9); FHHb 1.3 % (0.0-5.0); FMetHb 0.7 % (0.0-1.5); FO2Hb 97.9 % (94-97); MODE MASK - BIPAP; PATIENT TEMPERATURE 36.4; TOTAL HEMOGLOBIN 17.2 G/dl (14.0-17.9)
[2023-08-24] MEDS ORDERED: CefTRIAXone/D5W-Rocephin 1gm 50 ML IV ONE (18:45)
[2023-08-24] MEDS: niCARDipine-NS 40mg/200ml IVPB 200 ML IV SCH (18:55)
[2023-08-24 19:32] LABS: ABG BASE EXCESS -4.8 mmol/L (-2.0-2.0); ABG HCO3 22.4 mmol/L (22.0-26.0); ABG OXYGEN SATURATION 95.2 % (94-97); ABG PCO2 (T) 48.7 mmHg (35.0-48.0); ABG PO2 (T) 80.8 mmHg (75.0-100.0); ALLEN'S TEST Modified; FCOHb 0.4 % (0.0-3.9); FHHb 4.8 % (0.0-5.0); FMetHb 0.5 % (0.0-1.5); FO2Hb 94.3 % (94-97); MODE MASK - BIPAP; PATIENT TEMPERATURE 36.8; TOTAL HEMOGLOBIN 17.2 G/dl (14.0-17.9)
[2023-08-24] MEDS: ipratropium/albuterol 3ml nebule NEB PRN ×2 (19:41→22:57)
[2023-08-24] MEDS: docusate sod 100mg capsule PO SCH (20:00)
[2023-08-24] MEDS: K and/or MAG REPLACEMENT MC SCH (20:00)
[2023-08-24] MEDS ORDERED: DEXMEDETOMIDINE IN 0.9 % NACL 50 ML IV SCH ×2 (20:05→20:15)
[2023-08-24] MEDS: dexmedetomidine inj. 400 MCG in normal saline 100ml IV soln 96 ML IV SCH (20:16)
[2023-08-24] MEDS ORDERED: methylPREDNISolone sod succ 125mg/2ml vial IV SCH (21:00)
[2023-08-24] MEDS: heparin, porcine 5000 units/ml vial SQ SCH (21:04)
[2023-08-24] MEDS ORDERED: nitroGLYCERIN 1gm ointment UD TP ONE (21:55)
[2023-08-24] MEDS ORDERED: furosemide 40mg/4ml inj IV ONE (22:15)
[2023-08-24] MEDS ORDERED: LidoCAINE 2% Topical Jelly 11mL syringe MM ONE (22:15)
[2023-08-24] MEDS: insulin glargine (Lantus) pen - multi-dose SQ SCH (23:00)
[2023-08-25] VITALS (35 sets, daily range): BP systolic 79–162; BP diastolic 39–98; PULSE 59–104; RESP 13–38; TEMP 97.3–98; O2SAT 87–98
[2023-08-25 00:05] LABS: HEMOGLOBIN A1C 5.1 % (4.5-6.2)
[2023-08-25] MEDS: niCARDipine-NS 40mg/200ml IVPB 200 ML IV SCH (02:40)
[2023-08-25 02:58] LABS: BASOPHILS % (AUTO) 0.1 % (0-1); EOSINOPHILS % (AUTO) 0 % (0-6); HEMATOCRIT 45.9 % (42.0-52.0); HEMOGLOBIN 15.2 g/dl (14.0-17.9); LYMPHOCYTES # (AUTO) 0.4 X10'3 (1.1-4.8); LYMPHOCYTES % (AUTO) 3.7 % (21-51); MEAN CORPUSCULAR HEMOGLOBIN 32.3 PG (27.0-31.0); MEAN CORPUSCULAR VOLUME 97.8 FL (78-98); MEAN PLATELET VOLUME 8.8 FL (7.4-10.4); MONOCYTES # (AUTO) 0.3 X10'3 (0-0.9); MONOCYTES % (AUTO) 3.3 % (2-12); NEUTROPHILS # (AUTO) 8.9 X10'3 (1.8-7.7); NEUTROPHILS % (AUTO) 92.9 % (42-75); PLATELET COUNT 137 X10'3 (140-440); RED CELL DISTRIBUTION WIDTH 13.5 % (11.5-14.5); WHITE BLOOD COUNT 9.6 X10'3 (4.5-11.0)
[2023-08-25] MEDS: ipratropium/albuterol 3ml nebule NEB PRN (02:58)
[2023-08-25 03:02] LABS: PROTHROMBIN TIME 10.3 SECONDS (9.0-12.0)
[2023-08-25 03:08] LABS: ALANINE AMINOTRANSFERASE 16 U/L (12-78); ALBUMIN 3.7 G/DL (3.4-5.0); ALKALINE PHOSPHATASE 91 IU/L (46-116); AMYLASE 36 U/L (25-115); ANION GAP 10 (8-16); ASPARTATE AMINO TRANSFERASE 17 U/L (10-37); BLOOD UREA NITROGEN 17 MG/DL (7-18); BUN/CREATININE RATIO 12.3 (10.0-20.0); CALCIUM 8.5 MG/DL (8.5-10.1); CHLORIDE 101 MMOL/L (99-107); CREATININE 1.38 MG/DL (0.60-1.10); GLUCOSE 176 MG/DL (70-104); LIPASE 15 U/L (16-77); POTASSIUM 5.1 MMOL/L (3.5-5.1); SODIUM 136 MMOL/L (135-145); TOTAL CARBON DIOXIDE 24.6 MMOL/L (24-32); TOTAL PROTEIN 7.4 G/DL (6.4-8.2); eCRCL 39 ML/MIN; eGFR 49 ML/MIN
[2023-08-25] MEDS: dexmedetomidine inj. 400 MCG in normal saline 100ml IV soln 96 ML IV SCH (04:09)
[2023-08-25] MEDS: CefTRIAXone/D5W-Rocephin 1gm 50 ML IV SCH (07:31)
[2023-08-25] MEDS: multivitamins, therapeutics tablet PO SCH (07:33)
[2023-08-25] MEDS: docusate sod 100mg capsule PO SCH ×2 (07:33→20:30)
[2023-08-25] MEDS: heparin, porcine 5000 units/ml vial SQ SCH ×2 (07:34→20:30)
[2023-08-25] MEDS: methylPREDNISolone sod succ/PF 40mg inj. IV SCH ×2 (07:35→20:30)
[2023-08-25] MEDS: K and/or MAG REPLACEMENT MC SCH ×2 (08:00→20:00)
[2023-08-25] MEDS ORDERED: nicotine 21mg patch - 24 hr TD SCH (08:00)
[2023-08-25] MEDS: ipratropium/albuterol 3ml nebule IH SCH ×4 (11:00→22:57)
[2023-08-25] MEDS: insulin glargine (Lantus) pen - multi-dose SQ SCH (21:00)
[2023-08-26] VITALS (11 sets, daily range): BP systolic 76–148; BP diastolic 59–76; PULSE 78–148; RESP 14–28; O2SAT 92–98
[2023-08-26] MEDS: ipratropium/albuterol 3ml nebule IH SCH ×3 (03:13→11:00)
[2023-08-26 06:26] LABS: BASOPHILS % (AUTO) 0 % (0-1); EOSINOPHILS % (AUTO) 0 % (0-6); HEMATOCRIT 46.5 % (42.0-52.0); HEMOGLOBIN 15.4 g/dl (14.0-17.9); LYMPHOCYTES # (AUTO) 0.7 X10'3 (1.1-4.8); MEAN CORPUSCULAR HEMOGLOBIN 32.5 PG (27.0-31.0); MEAN CORPUSCULAR HGB CONC 33.2 g/dL (33.0-36.5); MONOCYTES # (AUTO) 1.1 X10'3 (0-0.9); NEUTROPHILS # (AUTO) 12.4 X10'3 (1.8-7.7); PLATELET COUNT 141 X10'3 (140-440); RED BLOOD COUNT 4.74 X10'6 (4.70-6.10); RED CELL DISTRIBUTION WIDTH 13.8 % (11.5-14.5); WHITE BLOOD COUNT 14.2 X10'3 (4.5-11.0)
[2023-08-26 06:37] LABS: INR 0.9 INR; PROTHROMBIN TIME 10.1 SECONDS (9.0-12.0)
[2023-08-26 06:41] LABS: ALANINE AMINOTRANSFERASE 14 U/L (12-78); ALBUMIN 3.6 G/DL (3.4-5.0); ALBUMIN/GLOBULIN RATIO 0.9 (1.1-1.5); ALKALINE PHOSPHATASE 89 IU/L (46-116); AMYLASE 51 U/L (25-115); ANION GAP 9 (8-16); ASPARTATE AMINO TRANSFERASE 33 U/L (10-37); BILIRUBIN,TOTAL 0.8 MG/DL (0.1-1.0); BLOOD UREA NITROGEN 33 MG/DL (7-18); BUN/CREATININE RATIO 25.2 (10.0-20.0); CALCIUM 9.2 MG/DL (8.5-10.1); CHLORIDE 101 MMOL/L (99-107); CREATININE 1.31 MG/DL (0.60-1.10); GLUCOSE 113 MG/DL (70-104); LIPASE 16 U/L (16-77); MAGNESIUM 2.5 MG/DL (1.5-2.4); PHOSPHORUS 3.3 MG/DL (2.3-4.5); SODIUM 135 MMOL/L (135-145); TOTAL CARBON DIOXIDE 24.9 MMOL/L (24-32); TOTAL PROTEIN 7.6 G/DL (6.4-8.2); eCRCL 41 ML/MIN; eGFR 52 ML/MIN
[2023-08-26] MEDS: K and/or MAG REPLACEMENT MC SCH (08:00)
[2023-08-26] MEDS: docusate sod 100mg capsule PO SCH (12:55)
[2023-08-26] MEDS: heparin, porcine 5000 units/ml vial SQ SCH (12:55)
[2023-08-26] MEDS: methylPREDNISolone sod succ/PF 40mg inj. IV SCH (12:55)
[2023-08-26] MEDS: multivitamins, therapeutics tablet PO SCH (12:55)
[2023-08-26] MEDS ORDERED: clopidogrel 75mg tablet PO SCH (13:05)
[2023-08-26] MEDS ORDERED: lisinopril 20mg tablet PO SCH (13:05)
[2023-08-26] MEDS: CefTRIAXone/D5W-Rocephin 1gm 50 ML IV SCH (13:16)
[2023-08-26] MEDS ORDERED: AZI25OT PO (13:25)
[2023-08-26] MEDS ORDERED: ALBU18HF2 IH (13:25)
[2023-08-26] MEDS ORDERED: METH4TAB81 PO (13:25)
[2023-08-26] MEDS ORDERED: FLUT1BLS4 INH (13:25)
[2023-08-26] MEDS ORDERED: LORazepam 1 MG tablet PO PRN (17:05)
[2023-08-26] MEDS ORDERED: LORazepam 2 mg/ml vial IV PRN (17:05)
[2023-08-27] MEDS ORDERED: atorvastatin 20mg tablet PO SCH (08:00)
[2023-08-28] MEDS ORDERED: LORazepam 2 mg/ml vial IV PRN (17:05)
[2023-08-28] MEDS ORDERED: LORazepam 1 MG tablet PO PRN (17:05)
[2023-08-29] MEDS ORDERED: folic acid 1mg tablet PO SCH (08:00)
[2023-08-29] MEDS ORDERED: thiamine 100mg tablet PO SCH (08:00)
== END 2023-08-26 16:40 | disposition home health service (06) | DRG 189 ==
LOC: ER 13:26 → ED HOLD 17:13 → EDBEDREQ 18:04 → ICU 2S 21:59
PROVIDERS: ADMIT Family Medicine; ATTEND Family Medicine
PROC: 5A09357 Assistance with Respiratory Ventilation, Less than 24 Consecutive Hours, Continuous Positive Airway Pressure (ICD-10-PCS; principal; 2023-08-25)
PROC: 5A09357 Assistance with Respiratory Ventilation, Less than 24 Consecutive Hours, Continuous Positive Airway Pressure (ICD-10-PCS; 2023-08-26)
DX: J96.01 Acute respiratory failure with hypoxia (principal); G93.41 Metabolic encephalopathy; J44.1 Chronic obstructive pulmonary disease with (acute) exacerbation; E11.9 Type 2 diabetes mellitus without complications; E78.00 Pure hypercholesterolemia, unspecified; I10 Essential (primary) hypertension; K44.9 Diaphragmatic hernia without obstruction or gangrene; E78.5 Hyperlipidemia, unspecified; Z82.41 Family history of sudden cardiac death; I25.2 Old myocardial infarction; Z82.49 Family history of ischemic heart disease and other diseases of the circulatory system; Z83.3 Family history of diabetes mellitus; Z86.74 Personal history of sudden cardiac arrest; Z87.891 Personal history of nicotine dependence; Z79.899 Other long term (current) drug therapy; Z88.8 Allergy status to other drugs, medicaments and biological substances; Z90.49 Acquired absence of other specified parts of digestive tract
CPT/HCPCS: 36415; 36600; 71045; 71275; 80053; 82150; 82803; 82948; 83036; 83690; 83735; 83880; 84100; 84145; 84484; 85018; 85025; 85379; 85610; 86140; 87081; 87502; 87503; 87634; 87811; 92508; 92616; 94640; 94660; 94760; 97110; 97161; 97530; 99285; A4615; A6213; A7015; C1758; G0378; J0360; J0696; J1644; J1815; J1940; J2060; J2920; J2930; J3475; J3490; J7030; Q9967

== ENCOUNTER 2024-04-29 12:08 | Emergency (ER) | payer OTHER, MEDICARE ==
[~2024-04-29] VITALS: Ht 177.8 cm; Wt 85.1 kg
[~2024-04-29 12:08] MED LIST changes: +ALBU18HF2 IH; -AMIO200T27 PO; -DIPH25CA83 PO; +FLUT1BLS4 INH; -FOLI1TAB27 PO; -LISI-644 PO; -OMEP20CA15 PO; -SIMV-45 PO; -THI100T PO
[2024-04-29] MEDS ORDERED: VALA100031 PO (13:51)
[2024-04-29 14:11] VITALS: TEMP 97.9
[2024-04-29] MEDS: ibuprofen tablet 400 MG TABLET PO ONE (14:21)
[2024-04-29] MEDS: dexamethasone sod phosphate 10mg/ml inj PO STA (14:21)
[2024-04-29 14:36] VITALS: BP 154/78; PULSE 68; RESP 16; O2SAT 98
== END 2024-04-29 14:44 | disposition home or self-care (01) ==
LOC: ER 12:08
DX: B02.8 Zoster with other complications (principal); M54.2 Cervicalgia; E78.00 Pure hypercholesterolemia, unspecified; I10 Essential (primary) hypertension; Z88.8 Allergy status to other drugs, medicaments and biological substances; Z79.899 Other long term (current) drug therapy; Z79.51 Long term (current) use of inhaled steroids; Z86.73 Personal history of transient ischemic attack (TIA), and cerebral infarction without residual deficits; Z72.89 Other problems related to lifestyle
CPT/HCPCS: 99283; J1100